=== PATIENT | male | born 1985 | race Caucasian/White ===

== ENCOUNTER 2017-12-18 08:42 | Emergency (ER) | payer BC ==
[2017-12-18 08:52] VITALS: BP 104/61
--- NOTE | 2017-12-18 08:54 | EDPHY ---
H & P Stated Complaint: bca yesterday r wrist inj Time Seen by Provider: 12/18/17 08:53 - Personal History Current Tetanus/Diphtheria Vaccine: Yes - Medical/Surgical History Hx Asthma: No Hx Chronic Respiratory Disease: No Hx Diabetes: No Hx Cardiac Disease: No Hx Renal Disease: No Hx Cirrhosis: No Hx Alcoholism: No Hx HIV/AIDS: No Hx Splenectomy or Spleen Trauma: No Other PMH: denies - Social History Smoking Status: Never smoked Constitutional: Initial Vital Signs Temperature (C) 36.7 C 12/18/17 08:49 Heart Rate 53 L 12/18/17 08:49 Respiratory Rate 16 12/18/17 08:49 Blood Pressure 104/61 12/18/17 08:49 O2 Sat (%) 96 12/18/17 08:49 O2 Delivery Mode Room Air Allergies/Adverse Reactions: No Known Allergies Allergy (Unverified 12/18/17 08:49) Home Medications: Medication Instructions Recorded NK [No Known Home Meds] 12/18/17 Medical Decision Making - Diagnostics Imaging Results: Imaging Impressions Wrist X-Ray 12/18/17 08:54 Impression: Triquetral avulsion fracture. Findings discussed with Amanuel Caicedo MD 12/18/2017 at 9:11. Imaging: Discussed imaging studies w/ roller leveler Radiologist, I viewed and interpreted images myself ED Course/Re-evaluation: CHIEF COMPLAINT: Right wrist pain HISTORY OF PRESENT ILLNESS: This patient is a 32 y/o male complaining of right wrist pain. He fell on his outstretched right hand yesterday. He was evaluated by his physical therapist today who recommended evaluation of the scaphoid and lunate for possible fracture. The patient denies any other trauma or further complaints. REVIEW OF SYSTEMS: A 10 point review of systems was performed and is negative with the exception of the elements mentioned in the history of present illness. PHYSICAL EXAM: HR, BP, O2 Sat, RR. Temp noted General Appearance: Alert, well hydrated, appropriate, and non-toxic appearing. Head: Atraumatic without scalp tenderness or obvious injury Eyes: Pupils equal, round, reactive to light and accommodation, EOMI, no trauma , no injection. Throat: Mucus membranes moist. Neck: Supple, nontender. Respiratory: No retractions, no distress, no wheezes, and no accessory muscle use. Cardiovascular: Good capillary refill all extremities. Musculoskeletal: Tenderness over dorsal aspect of right wrist. No pain on snuffbox palpation, no pain with axial thumb loading. Normal active ROM of all extremities, atraumatic. Neurological: Alert, appropriate, and interactive. The patient has normal DTRs and non-focal cranial nerves, motor, sensory, and cerebellar exam. Skin: No rashes, good turgor, no nodules on palpation. Past medical history: Denies Past surgical history: Noncontributory Family history: Noncontributory Social history: Employed. Does not abuse drugs, tobacco, or alcohol. DIFFERENTIAL DIAGNOSIS: The differential diagnosis for the patient's trauma included but was not limited to intracranial injury, long bone and pelvic bone fractures, spinal injury, intra-abdominal injury, and intra-thoracic injury. MEDICAL DECISION MAKIN32 y/o male presents with right wrist pain. No pain on snuffbox palpation, no pain with axial thumb loading. 09:07 Reviewed right wrist x-ray. Evidence of dorsal triquetrum fracture. No scaphoid fracture appreciated. 09:[address] Stephens, radiologist. He confirms triquetrum avulsion fracture. Reviewed x-ray results with patient. Plan to discharge home in good condition with referral to a hand specialist for follow up. He will be placed in a Velcro thumb spica. Return precautions discussed. He is comfortable with this plan. Departure - Departure Disposition: Home, Routine, Self-Care Clinical Impression: Triquetral chip fracture Qualifiers: Encounter type: initial encounter Fracture type: closed Laterality: right Qualified Code(s): S62.111A - Displaced fracture of triquetrum [cuneiform] bone , right wrist, initial encounter for closed fracture Condition: Good Instructions: Wrist Fracture in Adults (ED) Additional Instructions: Rest, ice, elevation. Follow up with an orthopedic surgeon within one week. We have referred your to our data collection specialist dimensional inspector. Return to the emergency department for worsening pain, swelling, numbness, weakness or other concerns. Wear your splint at all times until reevaluation. You may take this off to sleep. Referrals: Renan Ibrahim MD [Medical Doctor] - As per Instructions Report Scribed for: Amanuel Caicedo Report Scribed by: Rubina Maurice Date of Report: 12/18/17 Time of Report: 09:13
--- NOTE | 2017-12-23 12:07 | ASMTCMCOM ---
CM Note CM Note Notes: CM follow up for patient regarding orthopedic referral related to R wrist injury on 12/18/17. Referral and ER report faxed to Dr. Chapman in [place]. I spoke with Ari in this orthopedica office who confirms that patient has an appointment scheduled tomorrow at 0930. I have contacted patient's (contact numer in chart) and confirmed the appointment time as well as to inform her that the referral was faxed Date Signed: 12/23/2017 12:06 PM Electronically Signed By:Viridiana Ponce RN
== END 2017-12-18 09:20 | disposition home or self-care (01) ==
DX: S62.111A Displaced fracture of triquetrum [cuneiform] bone, right wrist, initial encounter for closed fracture (principal); W18.39XA Other fall on same level, initial encounter